=== PATIENT | female | born 1945 | race Caucasian/White ===

== ENCOUNTER 2017-01-08 05:39 | Day surgery (SDC) | payer MEDICARE, OTHER ==
[~2017-01-08 05:39] MED LIST: ADVAIR250 INH; ALEVE220 MG PO; BREO ELLIPTA INH; HYZAAR 100/25 T1 TAB PO; IMDUR30 PO; LIPITOR10 PO; LOP25 PO; NEUR300 PO; PEP20 PO; PRILOSEC40 MG PO; PROAIR HFA INH; REQUIP1 PO; SINGULAIR1 PO; ULTRAM50 PO; VITAMIN D1000 UNI1 PO; VOLT75 PO; ZANTAC150 MG PO; ZOL50 PO
[2017-03-06] MEDS ORDERED: LEVOTHYROXIN50 MCG PO (15:34)
== END 2017-01-08 08:39 | disposition home or self-care (01) ==
LOC: SDC 05:39
PROVIDERS: Orthopaedic Surgery
PROC: 3E0R3BZ Introduction of Anesthetic Agent into Spinal Canal, Percutaneous Approach (ICD-10-PCS; 2017-01-08)
PROC: B01BYZZ Fluoroscopy of Spinal Cord using Other Contrast (ICD-10-PCS; 2017-01-08)
PROC: 3E0R33Z Introduction of Anti-inflammatory into Spinal Canal, Percutaneous Approach (ICD-10-PCS; principal; 2017-01-08 07:45)
DX: M51.17 Intervertebral disc disorders with radiculopathy, lumbosacral region (principal); F32.9 Major depressive disorder, single episode, unspecified; Z88.0 Allergy status to penicillin; Z98.41 Cataract extraction status, right eye; Z98.42 Cataract extraction status, left eye; Z96.1 Presence of intraocular lens; Z98.890 Other specified postprocedural states; Z90.710 Acquired absence of both cervix and uterus
CPT/HCPCS: J2250; J3010; Q9967